=== PATIENT | female | born 1945 ===

== ENCOUNTER 2021-03-16 13:02 | Inpatient (IN) | payer OTHER ==
[~2021-03-16] VITALS: Ht 172.7 cm; Wt 136.1 kg
--- NOTE | 2021-03-16 13:20 | NUR ---
PACIENTE FEMENINA, LLEGA EN AMBULANCIA. PERSONAL PARAMEDICOS, REFIERE LA TRAEN POR DIFICULTAD RESPIRATORIA. PACIENTE ALERTA Y ORIENTADA. SE MIDE S/V, SAT:99% SE UBICA PACIENTE EN AREA DE CRITICO. SE MANTIENE BAJO OBSERVACION POR CAMBIOS.
--- NOTE | 2021-03-16 13:45 | NUR ---
PTE ALERTA,ESTABLE Y ORIENTADA.SE CONECTA A MONITOR CARDIACO Y EVER NON REABREATHER MASK.PTE CON ULCERA EN LOS TALONES Y SACRAL.PTE EDEMATOSA.SE NORBERTO SIGNOS VICTALES Y SE MANTIENE BAJO OBSERVACION POR CAMBIOS SIGNIFICATIVOS.
--- NOTE | 2021-03-16 15:28 | NUR ---
1500 SE RECIBE PTE FEMENINA ALERTA Y ORIENTADA EN [place] ESFERAS EN CAMA #3 DE UNIDAD DE CRITICO; CONECTADA A MONITOR CARDIACO Y OXIMETRIA DE PULSO CONTINUA. SE OBSERVA ASISTIDA RESPIRATORIAMENTE CON NON REBREATHING MASK AL 100%, SATURANDO 97%. PTE NO REFIERE DOLOR AL MOMENTO. VENOPUNCION PATENTE SHERON DE EDEMA Y ERITEMA RECIBIENDO TERAPIA DE IVFS 0.9NSS BAJANDO A 75ML/HR. PTE PRESENTANDO EDEMA EN EXTREMIDADES SUPERIORES E INFERIORES. PTE CON ULCERA SACRAL Y EN AMBOS TALONES. PTE EN CAMA NIVEL MAS BAJO CON BARANDAS ELEVADAS, CABECERA A 45 GRADOS, FRENOS COLOCADOS POR SEGURIDAD Y DEBIDAMENTE IDENTIFICADA. PENDIENTE COLECCION DE U/A PTE ORIENTADA SOBRE COLECCION DE MUESTRA. SE NORBERTO Y REPORTAN S/V. SE MANTIENE BAJO OSBERVACIOPN POR CAMBIOS EN MEDRANO CONDICION.
[2021-03-16] MEDS ORDERED: CARVEDILOL25 MG PO (15:40)
[2021-03-16] MEDS ORDERED: LANOXIN62.5 MCG PO (15:41)
[2021-03-16] MEDS ORDERED: LOTREL 10-20 M1 EACH PO (15:41)
[2021-03-16] MEDS ORDERED: ELIQUIS5 M1 PO (15:41)
[2021-03-16] MEDS ORDERED: IBERSARTAN PO (15:42)
[2021-03-16] MEDS ORDERED: PERCOCET 10-321 EACH PO (15:43)
[2021-03-16] MEDS ORDERED: OPTIFLEX COMPL1 EACH PO (15:43)
== END 2021-03-30 02:35 | disposition expired | DRG 291 ==
LOC: ER 13:02 → ICU-2 18:08 → ICU 18:08
PROVIDERS: ADMIT Internal Medicine; ATTEND Internal Medicine
PROC: 0BH17EZ Insertion of Endotracheal Airway into Trachea, Via Natural or Artificial Opening (ICD-10-PCS; principal; 2021-03-17)
PROC: 5A1955Z Respiratory Ventilation, Greater than 96 Consecutive Hours (ICD-10-PCS; 2021-03-17)
PROC: 02HV33Z Insertion of Infusion Device into Superior Vena Cava, Percutaneous Approach (ICD-10-PCS; 2021-03-17)
PROC: 8E0ZXY6 Isolation (ICD-10-PCS; 2021-03-27)
PROC: 0JDR3ZZ Extraction of Left Foot Subcutaneous Tissue and Fascia, Percutaneous Approach (ICD-10-PCS; 2021-03-27)
DX: I11.0 Hypertensive heart disease with heart failure (principal); A41.9 Sepsis, unspecified organism; R65.21 Severe sepsis with septic shock; J96.22 Acute and chronic respiratory failure with hypercapnia; I48.20 Chronic atrial fibrillation, unspecified; N39.0 Urinary tract infection, site not specified; E87.1 Hypo-osmolality and hyponatremia; L97.528 Non-pressure chronic ulcer of other part of left foot with other specified severity; I50.33 Acute on chronic diastolic (congestive) heart failure; Z79.01 Long term (current) use of anticoagulants; Z20.822 Contact with and (suspected) exposure to COVID-19; E66.01 Morbid (severe) obesity due to excess calories; L89.312 Pressure ulcer of right buttock, stage 2; B96.5 Pseudomonas (aeruginosa) (mallei) (pseudomallei) as the cause of diseases classified elsewhere; E87.6 Hypokalemia; L89.892 Pressure ulcer of other site, stage 2